=== PATIENT | female | born 1955 | race Two or more races ===

== ENCOUNTER 2018-07-04 10:42 | Emergency (ER) | payer MEDICAID ==
[~2018-07-04] VITALS: Ht 154.9 cm; Wt 59.6 kg
[2018-07-04 11:49] LABS: CALCIUM 8.5 mg/dL (8.5-10.1); CARBON DIOXIDE 30.8 mmol/L (21-32); CREATININE SERUM 1.4 mg/dL (0.6-1.0); POTASSIUM SERUM 4.3 mmol/L (3.5-5.1)
[2018-07-04] MEDS ORDERED: GLIPIZIDE10 M2 PO (11:49)
[2018-07-04] MEDS ORDERED: FORTAMET1000 MG PO (11:49)
[2018-07-04 11:51] LABS: UA SPECIFIC GRAVITY 1.015 (1.005-1.035); microscopic required? YES; urine erythrocyte 2+ (NEGATIVE)
[2018-07-04 11:55] LABS: BASOPHIL % 0.4 % (0-2); PLATELET COUNT 611 x10^3mcL (130-400)
[2018-07-04 12:00] LABS: AMPHETAMINE QUAL UR NONE DETECTED (See below)
[2018-07-04 12:02] LABS: ALBUMIN 2.1 g/dL (3.4-5.0); BILIRUBIN TOTAL 0.26 mg/dL (0.20-1.00); T4(THYROXINE) 9.2 ug/dL (4.7-13.3); TOTAL PROTEIN, SERUM 8.1 g/dL (6.4-8.2)
[2018-07-04 13:46] VITALS: BP 107/58
== END 2018-07-04 13:46 | disposition home or self-care (01) ==
LOC: ED 10:42
PROVIDERS: Emergency Medicine
DX: N39.0 Urinary tract infection, site not specified (principal); E11.22 Type 2 diabetes mellitus with diabetic chronic kidney disease; E11.65 Type 2 diabetes mellitus with hyperglycemia; N18.3 Chronic kidney disease, stage 3 (moderate); R63.4 Abnormal weight loss; G89.29 Other chronic pain; M54.9 Dorsalgia, unspecified
CPT/HCPCS: 82962; 83880; J2765

== ENCOUNTER 2019-06-17 08:57 | Emergency (ER) | payer OTHER ==
[~2019-06-17] VITALS: Ht 154.9 cm; Wt 71.7 kg
[~2019-06-17 08:57] MED LIST: FORTAMET1000 MG PO; GLIPIZIDE10 M2 PO
[2019-06-17 09:24] VITALS: BP 157/44; Ht 154.9 cm; Wt 71.7 kg
== END 2019-06-17 10:47 | disposition home or self-care (01) ==
LOC: ED 08:57
DX: S99.921A Unspecified injury of right foot, initial encounter (principal); X58.XXXA Exposure to other specified factors, initial encounter; Y93.89 Activity, other specified; Y92.89 Other specified places as the place of occurrence of the external cause; Y99.8 Other external cause status
CPT/HCPCS: Q0092